=== PATIENT | female | born 1940 | race Caucasian/White ===

== ENCOUNTER → 2020-04-26 | Outpatient (CLI) | payer MEDICARE, OTHER ==
[~2020-04-26] MED LIST: ALL DAY ENERGY PO; ANASTROZOLE1 MG PO; ARIMIDEX1 MG PO; ASPIRIN81 MG PO; BEET JUICE PO; CALCIUM PO; CAPSULE #0001 EACH PO; CO Q-1010 MG PO; ELIQUIS 2.5 MG2.5 MG PO; ERYTHROMYCIN O3.5 GM EYERT; FISH OIL300 MG PO; GELATIN 1300 MG PO; HYDROCHLOROTHIA25 MG PO; HYDROCODON-ACE1 EAC2 PO; LISINOPRIL10 MG PO; MAGNESIUM500 MG PO; MIRALAX17 GM PO; NORCO 5-325 TA1 EACH PO; VITAMIN B COMP1 EAC1 PO; VITAMIN C 500500 MG PO; VITAMIN C1000 MG PO; VITAMIN D-3 PO; VITAMIN D5000 UNIT PO; [UNRECOGNIZED DRUG - OTHER] PO
[2020-04-26 11:23] LABS: HEMOGLOBIN 14.3 gm/dl (12.3-15.3); RED BLOOD COUNT 4.66 M/UL (4.00-5.10)
[2020-04-26 11:44] LABS: BUN/CREATININE RATIO 22 (0-10)
== END ==
LOC: OPSV2 10:30
PROVIDERS: Orthopaedic Surgery
DX: Z01.818 Encounter for other preprocedural examination (principal); M19.041 Primary osteoarthritis, right hand; I45.10 Unspecified right bundle-branch block; R94.31 Abnormal electrocardiogram [ECG] [EKG]
CPT/HCPCS: 36415; 71046; 80048; 85025; 93005

== ENCOUNTER → 2020-04-27 | Day surgery (SDC) | payer MEDICARE, OTHER ==
[~2020-04-27] VITALS: Ht 157.5 cm; Wt 70.3 kg
== END | disposition home or self-care (01) ==
LOC: OR 07:45
DX: M18.11 Unilateral primary osteoarthritis of first carpometacarpal joint, right hand (principal); G89.29 Other chronic pain; I10 Essential (primary) hypertension; Z96.651 Presence of right artificial knee joint; Z85.3 Personal history of malignant neoplasm of breast; Z90.13 Acquired absence of bilateral breasts and nipples
CPT/HCPCS: 73130; 76000; C1713; J0171; J0690; J1100; J2001; J2370; J2405; J2550; J2704; J2765; J2795; J3010; J7120

== ENCOUNTER → 2021-02-07 | Outpatient (CLI) | payer MEDICARE, OTHER | LOC: CATH 09:43 | DX: R09.89 Other specified symptoms and signs involving the circulatory and respiratory systems (principal); R55 Syncope and collapse | CPT/HCPCS: 93880 ==

== ENCOUNTER → 2021-02-14 | Outpatient (CLI) | payer MEDICARE, OTHER | LOC: HEART 5 08:23 | DX: I49.5 Sick sinus syndrome (principal); R55 Syncope and collapse | CPT/HCPCS: 93306 ==

== ENCOUNTER 2021-10-03 10:16 | Emergency (ER) | payer MEDICARE, OTHER ==
[2021-10-03 11:35] LABS: HEMOGLOBIN 16.3 gm/dl (12.3-15.3); RED BLOOD COUNT 5.26 M/UL (4.00-5.10); WHITE BLOOD COUNT 7.5 K/UL (4.5-11.0)
[2021-10-03 12:05] LABS: BUN/CREATININE RATIO 24 (0-10)
[2021-10-03] MEDS ORDERED: ZOFRAN 4 MG TAB4 MG PO (16:43)
== END 2021-10-03 17:26 | disposition home or self-care (01) ==
LOC: ER1 10:16
PROVIDERS: Physician Assistant Medical
DX: R07.89 Other chest pain (principal); K85.90 Acute pancreatitis without necrosis or infection, unspecified; I10 Essential (primary) hypertension; Z20.822 Contact with and (suspected) exposure to COVID-19
CPT/HCPCS: 71045; 80053; 81001; 82550; 82553; 83690; 84484; 85025; 93005; 96361; 96374; 99285; J2405; Q9967; U0002

== ENCOUNTER → 2021-10-13 | Outpatient (CLI) | payer MEDICARE, OTHER ==
[~2021-10-13] MED LIST changes: +ZOFRAN 4 MG TAB4 MG PO
== END ==
LOC: US 09:39
DX: R10.13 Epigastric pain (principal); R11.0 Nausea; K76.0 Fatty (change of) liver, not elsewhere classified
CPT/HCPCS: 36415; 76705; 82150; 83690

== ENCOUNTER → 2021-11-27 | Outpatient (CLI) | payer MEDICARE, OTHER | LOC: EXRD 12:58 | DX: I82.409 Acute embolism and thrombosis of unspecified deep veins of unspecified lower extremity (principal); R22.43 Localized swelling, mass and lump, lower limb, bilateral | CPT/HCPCS: 93971 ==